=== PATIENT | male | born 1980 | race Two or more races ===

== ENCOUNTER 2021-12-08 13:36 | Emergency (ER) | payer MEDICAID ==
[~2021-12-08] VITALS: Ht 172.7 cm; Wt 96.4 kg
[~2021-12-08 13:36] MED LIST: NOCURR
[2021-12-08 13:39] VITALS: BP 143/86
[2021-12-08] MEDS ORDERED: KETOROLAC TROMETHAMINE 30 MG/ML VIAL IM ONE (15:00)
[2021-12-08] MEDS ORDERED: CYCL-448 PO (16:23)
== END 2021-12-08 16:45 | disposition home or self-care (01) ==
LOC: EMS 13:39
DX: S39.012A Strain of muscle, fascia and tendon of lower back, initial encounter (principal); M79.671 Pain in right foot; M25.512 Pain in left shoulder; F17.210 Nicotine dependence, cigarettes, uncomplicated; V49.40XA Driver injured in collision with unspecified motor vehicles in traffic accident, initial encounter; Y93.89 Activity, other specified; Y92.89 Other specified places as the place of occurrence of the external cause; Y99.8 Other external cause status
CPT/HCPCS: 99284; 72100; 73030; 73630; 96372; J1885